=== PATIENT | male | born 1970 ===

== ENCOUNTER 2018-07-18 00:14 | Day surgery (SDC) | payer OTHER ==
--- NOTE | 2018-07-17 13:57 | HISTORY AND PHYSICAL ---
DATE OF ADMISSION: July 18, 2018 CHIEF COMPLAINT Penile shaft skin lesions. HISTORY OF PRESENT ILLNESS The patient is a 47-year-old white male who was referred to the urology clinic from the [facility] with the above complaints for the past several months. The patient states these were nonpruritic, but may be slowly growing over time. He denies any significant urinary symptoms after being treated with Cardura. He also has a history of ED treated with Viagra and history of genital herpes currently on Acyclovir suppression therapy. When seen in the urology clinic, the patient had a normal circumcised penis. He had 5 to 6 areas of pigmented maculopapular skin lesions on the shaft. They were nontender. It is unclear whether these were HPV or other type of skin lesion, such as a pigmented nevi or seborrheic keratosis. The patient desires removal and excisional biopsy. PAST MEDICAL HISTORY * Asthma. * BPH. * Gastroesophageal reflux disease. * ED. * Attention deficit disorder. * Genital herpes. PAST SURGICAL HISTORY * Bilateral vasectomy. * Lasik. ALLERGIES No known drug allergies. CURRENT MEDICATIONS * ProAir inhaler. * Cardura. * Zantac. * Viagra. * Acyclovir. SOCIAL HISTORY The patient has a remote history of smoking. He quit 8 years ago. He is a and lives in [place], [place]. REVIEW OF SYSTEMS The patient denies chest pain, productive cough, fever, chills, nausea, vomiting, gross hematuria, kidney stones, urinary tract infections, or chronic headaches. PHYSICAL EXAMINATION GENERAL: The patient is a well-developed, well-nourished white male in no acute distress. HEENT: Normocephalic, atraumatic. CHEST: Clear to auscultation bilaterally. CARDIOVASCULAR: Regular rate and rhythm. ABDOMEN: Soft, nontender, no masses are palpated. : Deferred to the OR. EXTREMITIES: Without clubbing, cyanosis, or edema. NEURO: Nonfocal. IMPRESSION This is a 47-year-old white male with penile skin lesions. PLAN We will perform excisional biopsy and fulguration of lesions. [facility]
[~2018-07-18] VITALS: Ht 180.3 cm; Wt 78.5 kg
[~2018-07-18 00:14] MED LIST: ACYC800T99 PO; ALBU8.5H IH; ASCO-182 PO; CHOL200022 PO; DOXA2TAB58 PO; FAMO-67 PO; NAPR220C12 PO; RANI-366 PO; SILD20TA PO
[2018-07-18] MEDS ORDERED: ONDANSETRON 4 MG/2 ML VIAL ONE (08:08)
[2018-07-18] MEDS ORDERED: LIDOCAINE MPF 1% 5 ML VIAL ONE (08:08)
[2018-07-18] MEDS ORDERED: METOCLOPRAMIDE 10 MG/2 ML SDV ONE (08:08)
[2018-07-18] MEDS ORDERED: DEXAMETHASONE SOD 4 MG/ML VIAL ONE (08:08)
[2018-07-18] MEDS ORDERED: PROPOFOL EMUL(*) 10MG/ML 20 ML 20 ML ONE (08:08)
[2018-07-18] MEDS ORDERED: fentaNYL CITR 100 MCG/2 ML AMP ONE (08:11)
[2018-07-18 08:27] VITALS: BP 119/81
[2018-07-18 08:51] LABS: PLATELET COUNT, AUTOMATED 132 K/uL (150-450)
[2018-07-18] MEDS ORDERED: NORMOSOL R SOLN(*) 1000 ML BAG 1,000 ML IV PRN (09:10)
[2018-07-18] MEDS ORDERED: ceFAZolin(*) 1 GM VIAL 1 GM, GENTAMICIN(*) 80 MG/2 ML VIAL 60 MG in NS 0.9% IRRIGATION ... IR ONE (09:10)
[2018-07-18] MEDS ORDERED: ceFAZolin(*) 1 GM VIAL 1 GM in NS(*) 0.9% 100 ML MINI-BAG 100 ML IVPB ONE (09:10)
[2018-07-18] MEDS ORDERED: LIDOCAINE/SOD BICARB 8.4% SYR ID ONE (09:10)
[2018-07-18] MEDS ORDERED: MIDAZOLAM 2 MG/2 ML VIAL IVP PRN (09:10)
[2018-07-18] MEDS ORDERED: BACITRACIN OINT 15 GM TUBE TP ONE (10:35)
[2018-07-18] MEDS ORDERED: ROPIVACAINE 0.2% 20 ML VIAL ONE (10:35)
[2018-07-18] MEDS ORDERED: NEOMYCIN/POLYMYX/BACITR 30 GM TP ONE (10:56)
--- NOTE | 2018-07-18 12:12 | OPERATIVE REPORT 1 ---
EVENT DATE: July 18, 2018 SURGEON: Nathan Lawson MD ANESTHESIOLOGIST: Sher Moncada MD ANESTHESIA: General. PREOPERATIVE DIAGNOSIS Several maculopapular pigmented skin lesions on the penile shaft measuring 2 to 10 mm. POSTOPERATIVE DIAGNOSIS Several maculopapular pigmented skin lesions on the penile shaft measuring 2 to 10 mm. PROCEDURE PERFORMED 1. Excisional biopsy of skin lesions x6. 2. Fulguration of skin lesions x6. ESTIMATED BLOOD LOSS Minimal. FLUIDS Crystalloids. DRAINS None. COMPLICATIONS None. PATHOLOGY Three skin lesions sent for primary analysis on right base, left base, and left midshaft. CONDITION The patient was taken to the recovery room awake and in stable condition. STATEMENT OF MEDICAL NECESSITY The patient is a 47-year-old white male who was sent to the urology clinic with a several year history of pigmented skin lesions desiring removal. They appear to be a nevi and nonmalignant. Options were discussed and he has elected to undergo excision and fulguration. DESCRIPTION OF PROCEDURE The patient was brought to the operating room and after general anesthetic was obtained he was placed supine on the operating room table and prepped and draped in the usual sterile manner. A penile block was given using 0.25% Ropivacaine. Following this, the larger skin lesions were removed with an excision in an elliptical manner. The largest was on the right base of the penis and measuring approximately 10 mm x 10 mm. This was excised and small bleeding vessels were fulgurated with electrocautery and then the wound was closed with interrupting 5-0 Chromic stitches. This was sent for permanent analysis. The second largest lesion was on the left base. This was likewise in an elliptical manner and sent for analysis and was closed in a similar manner. He had approximately a 7 mm lesion on the left midshaft. This was also excised and sent for analysis and the incision closed. There were three more lesions on the shaft measuring 6 to 4 mm. These three were likewise excised and closed. He had several approximately 6 to 7 smaller lesions ranging from 2 to 4 mm which were fulgurated for treatment. At the conclusion of the procedure, antibiotic ointment was placed along the fulguration and biopsy sites and a roll gauze was placed. The patient was awakened in the operating room and taken to the recovery area in stable condition. The plan will be to allow the patient to be discharged home and he will be seen in the urology clinic in approximately 4 to 6 weeks for follow up to review his pathology. He has also been given a prescription for Colace, Motrin, Lortab and antibiotic ointment. RAN
[2018-07-18 12:30] VITALS: BP 87/58
[2018-07-18] MEDS ORDERED: LOR5/325 PO (12:30)
[2018-07-18] MEDS ORDERED: DOCU-416 PO (12:31)
[2018-07-18] MEDS ORDERED: IBUP600T22 PO (12:31)
[2018-07-18] MEDS ORDERED: NEOM1PAC11 TP (12:33)
[2018-07-18] MEDS ORDERED: NEOM28.424 TP (12:36)
[2018-07-18 12:39] VITALS: BP 113/76
[2018-07-18 12:41] VITALS: BP 107/75
== END 2018-07-18 12:30 | disposition home or self-care (01) ==
LOC: OR 00:14
PROVIDERS: ATTEND Urology
DX: L82.1 Other seborrheic keratosis (principal); J45.909 Unspecified asthma, uncomplicated; K21.9 Gastro-esophageal reflux disease without esophagitis; F98.8 Other specified behavioral and emotional disorders with onset usually occurring in childhood and adolescence; N40.0 Benign prostatic hyperplasia without lower urinary tract symptoms; N48.89 Other specified disorders of penis; A60.01 Herpesviral infection of penis
CPT/HCPCS: 11421; 81001; 84153; 85025; 88305; J0690; J1100; J2001; J2250; J2405; J2704; J2765; J2795; J3010; 82040; 82247; 82310; 82374; 82435; 82565; 82947; 84075; 84132; 84155; 84295; 84450; 84460; 84520

== ENCOUNTER 2018-08-29 18:31 | Emergency (ER) | payer OTHER ==
[~2018-08-29 18:31] MED LIST changes: +DOCU-416 PO; +IBUP600T22 PO; +LOR5/325 PO; +NEOM1PAC11 TP; +NEOM28.424 TP; -RANI-366 PO; +RANI-54 PO
--- NOTE | 2018-08-29 18:49 | ER Report ---
History and Physical Time Seen By MD: 18:49 Hx. of Stated Complaint: patient fell off truck, twisting left ankle and falling on right wrist. in sling and EZ splint in place HPI/ROS CHIEF COMPLAINT: Fall, right wrist pain HISTORY OF PRESENT ILLNESS: Patient is a 47-year-old male who was at work when he fell off the truck, twisted his left ankle and fell with an outstretched hand onto his right wrist causing obvious bony deformity. Patient is neurovascularly intact at time of evaluation the distal extremity, there is obvious bony step off in the distal radius. Patient denies other injury at this time. REVIEW OF SYSTEMS: Constitutional: No fever, no chills. Eyes: No discharge. ENT: No sore throat. Cardiovascular: No chest pain, no palpitations. Respiratory: No cough, no shortness of breath. Gastrointestinal: No abdominal pain, no vomiting. Genitourinary: No hematuria. Musculoskeletal: Right radial wrist pain Skin: No rashes. Neurological: Neurovascular exam intact in the distal right extremity Allergies: Coded Allergies: apple (Verified Allergy, Severe, tingling lip, throat swelling, 07/12/18) Home Meds Reported Medications Neomycn/Baci Zn/Pmyx Bs/Pramox (TRIPLE ANTIBIOTIC PLUS OINTMNT) 28.4 Gm Oint...g., 28.4 GM TP BID, #1 TUBE 07/18/18 Ibuprofen (IBUPROFEN) 600 Mg Tablet, 1 TAB PO Q6H PRN for PAIN, #20 TAB 07/18/18 Docusate Sodium (COLACE) 100 Mg Capsule, 100 MG PO BID, #30 CAPSULE 07/18/18 Hydrocodone Bit/Acetaminophen (HYDROCODON-ACETAMINOPHEN 5-325) 1 Each Tablet, 1- 2 EACH PO Q6H PRN for PAIN, #30 TAB 07/18/18 Ranitidine Hcl (ZANTAC) 150 Mg Tablet, 150 MG PO BID, TAB 07/12/18 Naproxen Sodium (ALEVE) 220 Mg Capsule, 440 MG PO QHS, CAPSULE 07/12/18 Cholecalciferol (Vitamin D3) (Vitamin D-3) 2,000 Unit Tablet, 1 TAB PO QDAY 07/12/18 Ascorbic Acid (VITAMIN C) 500 Mg Tablet, 500 MG PO QDAY, TAB 07/12/18 Sildenafil Citrate (SILDENAFIL) 20 Mg Tablet, 100 MG PO QDAY 4/19/19 Doxazosin Mesylate (DOXAZOSIN MESYLATE) 2 Mg Tablet, 2 MG PO QDAY 07/12/18 Albuterol Sulfate 90 Mcg/Act (PROAIR HFA 90 MCG/ACT) 8.5 Gm Hfa.aer.ad, 2 PUFF IH QDAY, INHALER 07/12/18 Acyclovir (ACYCLOVIR) 800 Mg Tablet, 0.5 TAB PO BID, TAB 07/12/18 Hx Smoking: Yes (2010, 1 ppw x 20yr) Smoking Status: Former Smoker Hx Substance Use Disorder: No Hx Alcohol Use: Yes (couple times a wk) Constitutional Vital Sign - Last 24 Hours 08/29/18 08/29/18 08/29/18 08/29/18 18:35 18:36 18:41 18:46 Temp 97.6 Pulse 71 73 81 78 Resp 16 B/P (MAP) 146/104 Pulse Ox 92 97 96 96 O2 Delivery Room Air 08/29/18 08/29/18 08/29/18 08/29/18 18:51 18:56 19:00 19:01 Pulse 82 82 78 B/P (MAP) 115/88 (97) Pulse Ox 94 97 93 08/29/18 08/29/18 08/29/18 08/29/18 19:06 19:16 19:21 19:36 Pulse 79 85 81 70 Resp 12 Pulse Ox 93 89 95 99 08/29/18 08/29/18 08/29/18 08/29/18 19:39 19:40 19:41 19:45 Pulse 94 Resp 36 B/P (MAP) 123/90 (101) 130/90 (103) 155/105 (122) Pulse Ox 100 08/29/18 08/29/18 08/29/18 08/29/18 19:46 19:50 19:51 19:55 Pulse 109 118 Resp 25 27 B/P (MAP) 149/103 (118) 136/86 (103) Pulse Ox 99 99 08/29/18 08/29/18 08/29/18 19:56 20:00 20:01 Pulse 110 106 Resp 21 25 B/P (MAP) 144/97 (113) Pulse Ox 98 97 Physical Exam General Appearance: The patient is alert, has no immediate need for airway protection and no signs of toxicity. Uncomfortable appearing Eyes: Pupils equal and round no pallor or injection. ENT, Mouth: Mucous membranes are moist. Respiratory: There are no retractions, lungs are clear to auscultation. Cardiovascular: Regular rate and rhythm. Gastrointestinal: Abdomen is soft and non tender, no masses, bowel sounds normal. Neurological: Neurovascular exam intact in the distal right extremity, capillary refill less than 3 seconds Skin: Warm and dry, no rashes. Musculoskeletal: Neck is supple non tender. Tenderness on palpation of the right distal wrist with obvious bony step-off DIFFERENTIAL DIAGNOSIS: After history and physical exam differential diagnosis was considered for fracture, dislocation, contusion, sprain Medical Decision Making EKG/Imaging Imaging PATIENT NAME: Petr Nash : 1970 MR: [id number] V: [id number] EXAM DATE: ORDERING PHYSICIAN: JATINDER LAUREANO TECHNOLOGIST: [place] [facility] [place]: Petr Nash : 1970 Visit/Account:[id number] Date of Sevice: 08/29/2018 Technique: FOREARM RIGHT HISTORY: foosh Comparison studies: None FINDINGS: Noted is an acute, impacted, intra-articular fracture involving the distal right radial metadiaphysis. The remaining alignment of the forearm is preserved. Degenerative changes are noted at the elbow. No radiodense foreign body. IMPRESSION: 1. Acute, impacted intra-articular fracture involving the distal right radial metadiaphysis. Report Dictated By: Serafin Reinoso DO at 08/29/2018 7:40 PM PATIENT NAME: Petr Nash : 1970 MR: [id number] V: [id number] EXAM DATE: ORDERING PHYSICIAN: JATINDER LAUREANO TECHNOLOGIST: [place] [facility] [place] Patient: Petr Nash : 1970 Visit/Account:[id number] Date of Sevice: 08/29/2018 Technique: XR WRIST 3 OR MORE VIEWS RT HISTORY: foosh Comparison studies: None FINDINGS: Noted is an acute, impacted intra-articular fracture involving the distal right radial metadiaphysis. Soft tissue swelling surrounds the fracture site. IMPRESSION: 1. Acute, impacted intra-articular fracture involving the distal right radial metadiaphysis. ED Course/Re-evaluation ED Course Patient is a 47-year-old male here with complaints of right wrist pain after a FOOSH. Patient is neurovascularly intact at time of evaluation. Patient was given ketamine 200 mg for sedation, fracture was reduced, splinted with Ortho- Glass gutter splint, ventral splint. I discussed the patient with Dr. Hess with orthopedics who recommended next day follow-up. Patient was given analgesics, prescription for home analgesics. Neurovascular exam intact prior to discharge. Patient was stable at time of discharge. Return precautions provided. Procedure Fracture reduction: Cracked patient and procedure was identified. Patient signed consent. Patient was given 200 mg ketamine, fracture was reduced and placed in an Ortho-Glass splint short arm, gutter and ventral splints. Patient tolerated procedure well. Respiratory therapy was present for procedure. Patient was neurovascularly intact after the procedure. Decision to Disposition Date: Aug 29, 2018 Decision to Disposition Time: 20:19 Depart Departure Latest Vital Signs Vital Signs Date Time Temp Pulse Resp B/P (MAP) Pulse Ox O2 Delivery O2 Flow Rate FiO2 08/29/18 20:01 106 25 97 08/29/18 20:00 144/97 (113) 08/29/18 18:35 97.6 Room Air Impression: Primary Impression: Right radial fracture Condition: Improved Disposition: HOME OR SELF-CARE New Scripts Oxycodone Hcl/Acetaminophen (PERCOCET 5-325 MG TABLET) 1 Each Tablet 1 TAB PO Q4H PRN for PAIN, #12 TAB 0 Refills Prov: JATINDER LAUREANO DO 08/29/18 Patient Instructions: Wrist Fracture in Adults (DC) Additional Instructions: Please take Tylenol or Advil as needed for primary pain control. You may take Percocet one tablet every 4-6 hours as needed for breakthrough pain control. Please keep your splint in place. I did discuss her case with orthopedics at [facility]. You will be contacted tomorrow to set up an appointment. Please return promptly if you develop worsening pain, numbness, rash. JATINDER LAUREANO DO Aug 29, 2018 18:49
[2018-08-29] MEDS ORDERED: KETAMINE HCL 500 MG/5 ML VIAL IVP ONE ×2 (19:30→20:00)
--- NOTE | 2018-08-29 19:48 | RADIOLOGY IMAGING REPORT ---
[facility] PATIENT NAME: Petr Nash : 1970 MR: [id number] V: [id number] EXAM DATE: ORDERING PHYSICIAN: JATINDER LAUREANO TECHNOLOGIST: Location: [facility] Patient: Petr Nash : 1970 Visit/Account:[id number] Date of Sevice: 08/29/2018 Technique: FOREARM RIGHT HISTORY: foosh Comparison studies: None FINDINGS: Noted is an acute, impacted, intra-articular fracture involving the distal right radial met adiaphysis. The remaining alignment of the forearm is preserved. Degenerative changes are noted at th e elbow. No radiodense foreign body. IMPRESSION: 1. Acute, impacted intra-articular fracture involving the distal right radial metadiaphysis. Report Dictated By: Serafin Reinoso DO at 08/29/2018 7:40 PM Report E-Signed By: Serafin Reinoso DO at 08/29/2018 7:43 PM WSN:[id number]
--- NOTE | 2018-08-29 19:48 | RADIOLOGY IMAGING REPORT ---
[place] [facility] [place] PATIENT NAME: Pter Nash : 1970 MR: [id number] V: [id number] EXAM DATE: ORDERING PHYSICIAN: JATINDER LAUREANO TECHNOLOGIST: Location: [facility] - [place] Patient: Petr Nash : 1970 Visit/Account:[id number] Date of Sevice: 08/29/2018 Technique: XR WRIST 3 OR MORE VIEWS RT HISTORY: foosh Comparison studies: None FINDINGS: Noted is an acute, impacted intra-articular fracture involving the distal right radial meta diaphysis. Soft tissue swelling surrounds the fracture site. IMPRESSION: 1. Acute, impacted intra-articular fracture involving the distal right radial metadiaphysis. Report Dictated By: Serafin Reinoso DO at 08/29/2018 7:43 PM Report E-Signed By: Serafin Reinoso DO at 08/29/2018 7:43 PM WSN:[id number]
[2018-08-29 20:00] VITALS: BP 144/97
[2018-08-29] MEDS ORDERED: NS(*) 0.9% 1000 ML BAG 1,000 ML IV ONE (20:00)
[2018-08-29] MEDS ORDERED: traMADol 50 MG TAB PO ONE (20:15)
--- NOTE | 2018-08-29 20:18 | RADIOLOGY IMAGING REPORT ---
FACILITY: [facility] - [place] PATIENT NAME: Petr Nash : 1970 MR: [id number] V: [id number] EXAM DATE: ORDERING PHYSICIAN: JATINDER LAUREANO TECHNOLOGIST: Location: [facility] Patient: Petr Nash : 1970 Visit/Account:[id number] Date of Sevice: 08/29/2018 Technique: XR WRIST 2 VWS RT HISTORY: post reduction Comparison studies: 08/29/2018 FINDINGS: Casting overlies the right wrist. Redemonstrated is an acute, impacted intra-articular frac ture involving the distal right radial metadiaphysis. IMPRESSION: 1. Status post casting of a distal right radial fracture. Report Dictated By: Serafin Reinoso DO at 08/29/2018 8:13 PM Report E-Signed By: Serafin Reinoso DO at 08/29/2018 8:14 PM WSN:[id number]
[2018-08-29] MEDS ORDERED: OXYC-865 PO (20:19)
[2018-08-29] MEDS ORDERED: ONDANSETRON 4 MG/2 ML VIAL IVP ONE (20:50)
[2018-08-29] MEDS ORDERED: oxyCODONE/ACETAMIN 5/325MG TH 2 TAB/BOTTLE PO ONE (20:50)
[2018-08-29] MEDS ORDERED: ONDANSETRON 4 MG ODT TH SL ONE (21:20)
== END 2018-08-29 21:32 | disposition home or self-care (01) ==
LOC: ER 18:50
DX: S52.501A Unspecified fracture of the lower end of right radius, initial encounter for closed fracture (principal); W17.89XA Other fall from one level to another, initial encounter
CPT/HCPCS: 96361; 96374; 96375; 99152; 99153; 99285; J2405; J7030; S0119

== ENCOUNTER 2018-09-03 00:42 | Day surgery (SDC) | payer OTHER ==
[~2018-09-03] VITALS: Ht 177.8 cm; Wt 77.6 kg
[~2018-09-03 00:42] MED LIST changes: +OXYC-865 PO
[2018-09-03] MEDS ORDERED: ceFAZolin(*) 1 GM VIAL 1 GM in NS(*) 0.9% 100 ML MINI-BAG 100 ML IVPB ONE (07:30)
[2018-09-03] MEDS ORDERED: CELECOXIB 200 MG CAP PO ONE (07:30)
[2018-09-03] MEDS ORDERED: FAMOTIDINE 20 MG TAB PO ONE (07:35)
[2018-09-03 07:44] VITALS: BP 110/79
[2018-09-03] MEDS ORDERED: NORMOSOL R SOLN(*) 1000 ML BAG 1,000 ML IV PRN (08:30)
[2018-09-03] MEDS ORDERED: MIDAZOLAM 2 MG/2 ML VIAL IVP PRN (08:30)
[2018-09-03] MEDS ORDERED: LIDOCAINE/SOD BICARB 8.4% SYR ID ONE (08:30)
[2018-09-03] MEDS ORDERED: ROPIVACAINE 0.2% 20 ML VIAL ONE (09:11)
[2018-09-03] MEDS ORDERED: fentaNYL CITR 100 MCG/2 ML AMP ONE ×3 (10:41→12:24)
[2018-09-03] MEDS ORDERED: ONDANSETRON 4 MG/2 ML VIAL ONE (11:58)
[2018-09-03] MEDS ORDERED: PROPOFOL EMUL(*) 10MG/ML 20 ML 20 ML ONE (11:58)
[2018-09-03] MEDS ORDERED: DEXAMETHASONE SOD PHOS 10MG/ML ONE (11:58)
--- NOTE | 2018-09-03 12:31 | OPERATIVE REPORT 1 ---
EVENT DATE: September 03, 2018 SURGEON: Rogre Hooks MD ANESTHESIOLOGIST: Boyd Cotto MD ANESTHESIA: General. ENRICHMENT DIRECTOR: Patrick Moreno PA-C PREOPERATIVE DIAGNOSIS Right distal radius comminuted intra-articular and shortened and angulated fracture. POSTOPERATIVE DIAGNOSIS Right distal radius comminuted intra-articular and shortened and angulated fracture. PROCEDURE PERFORMED Open reduction internal fixation of a right distal radius fracture which is greater than three parts intra-articular and comminuted. FINDINGS Patient had a comminuted intra-articular fracture but was amenable for fixation. ESTIMATED BLOOD LOSS Minimal. DRAINS None. COMPLICATIONS None. IMPLANTS [employer] three shaft hole right specific plate for the volar plate with subsequent screws. SPECIMENS None. TOURNIQUET TIME 67 minutes. INDICATIONS/HISTORY This patient is a 47-year old male who fell off a height a few days ago and was found to have a comminuted intra-articular distal radius fracture with shortening and significant amount of comminution and intra-articular split so therefore we talked to him about the implications as well as treatment options. He wanted to go ahead with operative fixation today, September 03, 2018, and the risks and benefits were discussed with the patient and informed consent was obtained at the last clinic visit. We talked about how he would probably still have some stiffness and irritation and problems with the wrist long-term and he probably would develop arthritis long-term and he said he understood that. DESCRIPTION OF PROCEDURE The patient was brought into the operating room. He and the procedure were both verified. He was placed supine on the operating table and induced intubated by anesthesia. The right upper extremity was then prepped and draped in the usual fashion and a time-out was observed, verifying correct patient and procedure. The standard incision was made over the volar aspect of the wrist in the standard volar Daryn approach and went directly over the FCR and then moved the FCR to the radial side in order to protect it. I then went through the musculature in order to get down to the distal radius. Once I got down to the distal radius, I was then able to identify the fracture fragments and most of the comminuted pieces associated with it and clean those up and get adequate exposure associated with it. Once I was able to reduce the radial styloid and then put it back up into volar position to try and decrease some of the dorsal comminution by using a [place] in this area, I was then able to pin the styloid in place and then pin a plate in place on the volar aspect in order to hold it in good position. Once I pinned everything in place, everything looked significantly better and was fairly well reduced we, therefore, then used two highly compressive screws out of the distal aspect and then compressed the plate to the distal aspect in order to hold the comminuted pieces on the dorsal aspect together. Once I did this, I was then able to put two more distal locking screws into the plate and also a radial styloid screw in order to hold this piece in place and then remove the pins out of the distal aspect. Once I had adequate fixation of distal aspect and good reduction of the joint surface, I then reduced it to the shaft and then was able to put three shaft screws in order to lock the plate down from a distal to proximal direction. Once we were able to do this, then the volar lip looked in better position, was anatomically reduced and we had restored the volar tilt associated with the distal radius. I then was able to irrigate with a copious amount of saline. We then put in one more ulnar screw on the secondary row on this side in order to hold that in place. This looked significantly better once we were done with this and, therefore, we then irrigated again and took final C-arm images, which we had been doing throughout the case, utilizing the mini C-arm, to verify reduction and screw fixation. Once we verified the screws were out of the joint and everything had good fixation and position, I was then able to irrigate again. I closed the bottom layer with a 3-0 Vicryl. This was then followed by 3-0 Vicryl in the subcutaneous tissue and 4-0 Nylon in the skin. The wound was then dressed with Xeroform, gauze, 4x4s and a soft dressing followed by volar and dorsal splint. The tourniquet was let down after just 70 minutes and the patient was awakened, extubated and transferred to PACU in stable condition. RAN
[2018-09-03] MEDS ORDERED: KETOROLAC 30 MG/ML VIAL ONE (12:47)
[2018-09-03] MEDS ORDERED: ACETAMINOPHEN(*)1000 MG/100 ML 100 ML IVPB ONE (12:51)
[2018-09-03 13:30] VITALS: BP 114/89
[2018-09-03] MEDS ORDERED: APAP/HYDROCODONE 325/5 TAB ONE (13:42)
[2018-09-03 13:45] VITALS: BP 118/85
[2018-09-03 14:00] VITALS: BP 120/75
[2018-09-03 14:02] VITALS: BP 107/89
== END 2018-09-03 13:30 | disposition home or self-care (01) ==
LOC: OR 00:42
PROVIDERS: ATTEND Orthopaedic Surgery
DX: S52.571A Other intraarticular fracture of lower end of right radius, initial encounter for closed fracture (principal)
CPT/HCPCS: 25609; J0131; J1100; J1885; J2250; J2405; J2704; J2795; J3010; C1713